=== PATIENT | male | born 1995 | race Caucasian/White ===

== ENCOUNTER 2022-05-25 18:06 | Emergency (ER) | payer OTHER ==
[2022-05-25 18:14] VITALS: BP 124/74; PULSE 64; RESP 18; TEMP 98.2; BMI 31.8
[2022-05-25] MEDS ORDERED: FLUORESCEIN NA 1 EA STRIP ONE (18:27)
[2022-05-25] MEDS ORDERED: IBUPROFEN 600 MG TABLET (FP) PO ONE ×2 (18:32→18:36)
[2022-05-25] MEDS ORDERED: DIPHTH,PERTUSS(ACELL),TET 0.5 ML DISP.SYRIN IM ONE ×2 (18:32→18:36)
== END 2022-05-25 18:46 | disposition home or self-care (01) ==
LOC: JER 18:06 → JERFT 18:06
PROC: 3E0234Z Introduction of Serum, Toxoid and Vaccine into Muscle, Percutaneous Approach (ICD-10-PCS; principal; 2022-05-25)
DX: S05.01XA Injury of conjunctiva and corneal abrasion without foreign body, right eye, initial encounter (principal); W45.8XXA Other foreign body or object entering through skin, initial encounter; W31.1XXA Contact with metalworking machines, initial encounter
CPT/HCPCS: 90471; 90715; 99284-25